=== PATIENT | male | born 2000 | race Caucasian/White ===

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

== ENCOUNTER 2021-07-13 19:28 | Emergency (ER) | payer BC ==
[2021-07-13] MEDS ORDERED: Rabies Vaccine (Avian) 2.5 Unit Inj Kit IM ONE (20:35)
== END 2021-07-13 22:34 | disposition home or self-care (01) ==
LOC: MW.ED 19:28
DX: S40.812A Abrasion of left upper arm, initial encounter (principal); S40.811A Abrasion of right upper arm, initial encounter; S80.812A Abrasion, left lower leg, initial encounter; S80.811A Abrasion, right lower leg, initial encounter; Z23 Encounter for immunization; W55.59XA Other contact with raccoon, initial encounter
CPT/HCPCS: 90375; 90471; 90675; 96372; 99283